=== PATIENT | female | born 1950 ===

== ENCOUNTER 2021-12-24 19:08 | Outpatient (REF) | payer OTHER, SELFPAY ==
[2021-12-25 16:04] LABS: D-Dimer 540 ng/mlFEU (<500)
== END 2021-12-24 19:09 | disposition home or self-care (01) ==
LOC: LBN 19:08
PROVIDERS: Visit Provider Nurse Practitioner Family
DX: M79.606 Pain in leg, unspecified (principal)
CPT/HCPCS: 85379